=== PATIENT | male | born 1940 | race Caucasian/White ===

== ENCOUNTER 2021-12-20 13:16 | Emergency (ER) | payer MEDICARE ==
[~2021-12-20] VITALS: Ht 165.1 cm; Wt 77.0 kg
[2021-12-20 13:47] VITALS: BP 142/60
[2021-12-20 14:12] LABS: BASOPHILS % (AUTO) 0.7 % (0-1); EOSINOPHILS # (AUTO) 0.2 X10'3 (0-0.9); EOSINOPHILS % (AUTO) 3.4 % (0-6); HEMATOCRIT 40.8 % (42.0-52.0); HEMOGLOBIN 13.8 g/dl (14.0-17.9); LYMPHOCYTES # (AUTO) 1.3 X10'3 (1.1-4.8); LYMPHOCYTES % (AUTO) 19.2 % (21-51); MEAN CORPUSCULAR HEMOGLOBIN 30.1 PG (27.0-31.0); MEAN CORPUSCULAR HGB CONC 33.9 g/dL (33.0-36.5); MEAN CORPUSCULAR VOLUME 88.9 FL (78-98); MEAN PLATELET VOLUME 9.9 FL (7.4-10.4); MONOCYTES # (AUTO) 0.5 X10'3 (0-0.9); MONOCYTES % (AUTO) 6.8 % (2-12); NEUTROPHILS # (AUTO) 4.6 X10'3 (1.8-7.7); NEUTROPHILS % (AUTO) 69.9 % (42-75); PLATELET COUNT 181 X10'3 (140-440); RED BLOOD COUNT 4.59 X10'6 (4.70-6.10); RED CELL DISTRIBUTION WIDTH 14.3 % (11.5-14.5); WHITE BLOOD COUNT 6.6 X10'3 (4.5-11.0)
[2021-12-20 14:23] LABS: ALANINE AMINOTRANSFERASE 19 U/L (12-78); ALBUMIN 4.4 G/DL (3.4-5.0); ALBUMIN/GLOBULIN RATIO 1.3 (1.1-1.5); ALKALINE PHOSPHATASE 80 IU/L (46-116); ANION GAP 8 (8-16); ASPARTATE AMINO TRANSFERASE 17 U/L (10-37); BILIRUBIN,TOTAL 0.8 MG/DL (0.1-1.0); BLOOD UREA NITROGEN 15 MG/DL (7-18); BUN/CREATININE RATIO 17.4 (5.4-32.0); CALCIUM 9.4 MG/DL (8.5-10.1); CHLORIDE 101 MMOL/L (99-107); CREATININE 0.86 MG/DL (0.60-1.10); GLUCOSE 73 MG/DL (70-104); POTASSIUM 4.4 MMOL/L (3.5-5.1); SODIUM 139 MMOL/L (135-145); TOTAL CARBON DIOXIDE 29.8 MMOL/L (24-32); TOTAL PROTEIN 7.7 G/DL (6.4-8.2); eGFR 85 ML/MIN
== END 2021-12-20 17:22 | disposition left against medical advice (07) ==
LOC: ER 13:17
DX: R00.1 Bradycardia, unspecified (principal); Z53.21 Procedure and treatment not carried out due to patient leaving prior to being seen by health care provider
CPT/HCPCS: 36415; 71045; 80053; 83880; 84484; 85025; 93005; 99285

== ENCOUNTER 2022-02-26 09:41 | Day surgery (SDC) | payer MEDICARE ==
[2022-02-25 12:20] LABS: BASOPHILS % (AUTO) 0.8 % (0-1); EOSINOPHILS # (AUTO) 0.3 X10'3 (0-0.9); EOSINOPHILS % (AUTO) 5.2 % (0-6); HEMOGLOBIN 13.3 g/dl (14.0-17.9); LYMPHOCYTES # (AUTO) 1.1 X10'3 (1.1-4.8); LYMPHOCYTES % (AUTO) 18.9 % (21-51); MEAN CORPUSCULAR HEMOGLOBIN 30.7 PG (27.0-31.0); MEAN CORPUSCULAR VOLUME 87.8 FL (78-98); MEAN PLATELET VOLUME 9.6 FL (7.4-10.4); MONOCYTES # (AUTO) 0.4 X10'3 (0-0.9); MONOCYTES % (AUTO) 6.7 % (2-12); NEUTROPHILS # (AUTO) 4.2 X10'3 (1.8-7.7); NEUTROPHILS % (AUTO) 68.4 % (42-75); PLATELET COUNT 192 X10'3 (140-440); RED BLOOD COUNT 4.33 X10'6 (4.70-6.10); RED CELL DISTRIBUTION WIDTH 14.4 % (11.5-14.5); WHITE BLOOD COUNT 6.1 X10'3 (4.5-11.0)
[2022-02-25 12:30] LABS: ALBUMIN 4.1 G/DL (3.4-5.0); ANION GAP 6 (8-16); BLOOD UREA NITROGEN 11 MG/DL (7-18); BUN/CREATININE RATIO 13.1 (5.4-32.0); CALCIUM 9.2 MG/DL (8.5-10.1); CHLORIDE 100 MMOL/L (99-107); CREATININE 0.84 MG/DL (0.60-1.10); GLUCOSE 202 MG/DL (70-104); POTASSIUM 3.7 MMOL/L (3.5-5.1); SODIUM 137 MMOL/L (135-145); TOTAL CARBON DIOXIDE 30.9 MMOL/L (24-32); eGFR 88 ML/MIN
[2022-02-25 12:33] LABS: APTT 27 SECONDS (22-32)
[2022-02-26] VITALS (11 sets, daily range): BP systolic 111–136; BP diastolic 50–65
[~2022-02-26] VITALS: Ht 165.1 cm; Wt 81.5 kg
[2022-02-26] MEDS ORDERED: midazolam 1 mg/ML 2ml injection ONE (10:24)
[2022-02-26] MEDS ORDERED: ceFAZolin 1000mg inj ONE (10:24)
[2022-02-26] MEDS ORDERED: fentaNYL/PF 50MCG/1 ML 2ML syringe ONE (10:24)
[2022-02-26] MEDS ORDERED: CLOP75TA33 PO (10:25)
[2022-02-26] MEDS ORDERED: CARV6.253 PO (10:25)
[2022-02-26] MEDS ORDERED: FLO0.4C PO (10:25)
[2022-02-26] MEDS ORDERED: LATA2.5D14 EACHEYE (10:25)
[2022-02-26] MEDS ORDERED: GLIM4TAB7 PO (10:25)
[2022-02-26] MEDS ORDERED: AMLO10TA13 PO (10:25)
[2022-02-26] MEDS ORDERED: INSU100V37 (10:25)
[2022-02-26] MEDS ORDERED: LIDOCAINE 1%/EPI 1:100,000 inj. 10 ML multi-dose vial ONE ×2 (10:25→11:35)
[2022-02-26] MEDS ORDERED: DONE10TA19 PO (10:25)
[2022-02-26] MEDS ORDERED: LISI20TA28 PO (10:25)
[2022-02-26] MEDS ORDERED: FAMO40TA58 PO (10:25)
[2022-02-26] MEDS ORDERED: METF-436 PO (10:25)
[2022-02-26] MEDS ORDERED: ATOR40TA PO (10:25)
[2022-02-26] MEDS ORDERED: vancomycin/NS 1 GM in NS 250 ML IV ONE (13:03)
[2022-02-26] MEDS ORDERED: HYDROcodone/acetaminophen 10/325mg tab PO PRN (13:05)
[2022-02-26] MEDS ORDERED: HYDROcodone/acetaminophen 5mg/325mg tablet PO PRN (13:05)
[2022-02-26] MEDS ORDERED: ceFAZolin/D5W- 1GM premix 50 ML IV SCH (16:00)
== END 2022-02-26 17:55 | disposition home or self-care (01) ==
LOC: SSTAY O 09:41
PROVIDERS: ATTEND Internal Medicine Cardiovascular Disease
DX: I49.5 Sick sinus syndrome (principal); Z79.01 Long term (current) use of anticoagulants; Z79.899 Other long term (current) drug therapy; I25.10 Atherosclerotic heart disease of native coronary artery without angina pectoris; E78.5 Hyperlipidemia, unspecified; I10 Essential (primary) hypertension; E11.9 Type 2 diabetes mellitus without complications; Z86.73 Personal history of transient ischemic attack (TIA), and cerebral infarction without residual deficits; Z98.890 Other specified postprocedural states; G47.30 Sleep apnea, unspecified
CPT/HCPCS: 33208; 36415; 71046; 80048; 82948; 85025; 85610; 85730; 93005; 99152; 99153; C1785; C1894; J2250; J3010; J3370; J3490; J7030; A4565; A4620; A6449; J0690